=== PATIENT | female | born 1940 | race Caucasian/White ===

== ENCOUNTER 2019-10-22 09:44 | Emergency (ER) | payer MEDICARE, BC ==
[~2019-10-22] VITALS: Ht 170.2 cm; Wt 71.8 kg
[2019-10-22] MEDS ORDERED: normal saline 1000ML IV soln IVB ONE (09:50)
[2019-10-22] MEDS ORDERED: diltiazem 5mg/ml 5ml inj. IV ONE (09:50)
[2019-10-22] MEDS ORDERED: ondansetron/PF 4mg/2ml inj IV ONE (09:50)
[2019-10-22] MEDS ORDERED: aspirin 81mg tab.chew PO ONE (09:50)
[2019-10-22 10:17] LABS: BASOPHILS % (AUTO) 0.7 % (0-1); EOSINOPHILS # (AUTO) 0.2 X10'3 (0-0.9); EOSINOPHILS % (AUTO) 2.8 % (0-6); LYMPHOCYTES # (AUTO) 0.9 X10'3 (1.1-4.8); LYMPHOCYTES % (AUTO) 15.4 % (21-51); MEAN CORPUSCULAR HEMOGLOBIN 32.4 PG (27.0-31.0); MEAN CORPUSCULAR HGB CONC 33.5 g/dL (33.0-36.5); MEAN CORPUSCULAR VOLUME 96.8 FL (78-98); MEAN PLATELET VOLUME 7.9 FL (7.4-10.4); MONOCYTES # (AUTO) 0.5 X10'3 (0-0.9); MONOCYTES % (AUTO) 8.2 % (2-12); NEUTROPHILS # (AUTO) 4.1 X10'3 (1.8-7.7); NEUTROPHILS % (AUTO) 72.9 % (42-75); PLATELET COUNT 189 X10'3 (140-440); RED BLOOD COUNT 4.34 X10'6 (4.20-5.60); RED CELL DISTRIBUTION WIDTH 13.7 % (11.5-14.5); WHITE BLOOD COUNT 5.6 X10'3 (4.5-11.0)
[2019-10-22 10:46] LABS: ALANINE AMINOTRANSFERASE 27 U/L (12-78); ALBUMIN 4.2 G/DL (3.4-5.0); ALBUMIN/GLOBULIN RATIO 1.2 (1.1-1.5); ALKALINE PHOSPHATASE 67 IU/L (46-116); ANION GAP 9 (8-16); ASPARTATE AMINO TRANSFERASE 29 U/L (10-37); BILIRUBIN,TOTAL 0.9 MG/DL (0.1-1.0); BLOOD UREA NITROGEN 14 MG/DL (7-18); BUN/CREATININE RATIO 14.9 (6.6-38.0); CALCIUM 8.5 MG/DL (8.5-10.1); CHLORIDE 103 MMOL/L (99-107); CREATININE 0.94 MG/DL (0.40-0.90); GLUCOSE 122 MG/DL (70-104); POTASSIUM 3.5 MMOL/L (3.5-5.1); SODIUM 139 MMOL/L (135-145); TOTAL CARBON DIOXIDE 27.5 MMOL/L (24-32); TOTAL PROTEIN 7.6 G/DL (6.4-8.2); eGFR 58 ML/MIN
[2019-10-22 11:00] VITALS: BP 125/71
== END 2019-10-22 11:11 | disposition home or self-care (01) ==
LOC: ER 09:44
DX: I48.20 Chronic atrial fibrillation, unspecified (principal); R07.89 Other chest pain; R42 Dizziness and giddiness; Z86.73 Personal history of transient ischemic attack (TIA), and cerebral infarction without residual deficits
CPT/HCPCS: 36415; 71045; 80053; 83880; 84484; 85025; 85610; 93005; 96361; 96374; 96375; 99285; J2405; J7030; J3490

== ENCOUNTER 2019-11-06 10:09 | Observation (INO) | payer MEDICARE, BC ==
[~2019-11-06] VITALS: Ht 170.2 cm; Wt 72.7 kg
[2019-11-06 11:05] LABS: BASOPHILS % (AUTO) 0.4 % (0-1); EOSINOPHILS # (AUTO) 0.2 X10'3 (0-0.9); EOSINOPHILS % (AUTO) 2.5 % (0-6); HEMATOCRIT 41.2 % (35.0-45.0); HEMOGLOBIN 13.8 g/dl (12.0-16.0); LYMPHOCYTES # (AUTO) 0.9 X10'3 (1.1-4.8); LYMPHOCYTES % (AUTO) 13.5 % (21-51); MEAN CORPUSCULAR HEMOGLOBIN 32.3 PG (27.0-31.0); MEAN CORPUSCULAR HGB CONC 33.6 g/dL (33.0-36.5); MEAN CORPUSCULAR VOLUME 96.2 FL (78-98); MEAN PLATELET VOLUME 8.4 FL (7.4-10.4); MONOCYTES # (AUTO) 0.5 X10'3 (0-0.9); MONOCYTES % (AUTO) 7.3 % (2-12); NEUTROPHILS # (AUTO) 5.2 X10'3 (1.8-7.7); NEUTROPHILS % (AUTO) 76.3 % (42-75); PLATELET COUNT 192 X10'3 (140-440); RED BLOOD COUNT 4.28 X10'6 (4.20-5.60); RED CELL DISTRIBUTION WIDTH 13.6 % (11.5-14.5); WHITE BLOOD COUNT 6.8 X10'3 (4.5-11.0)
[2019-11-06 11:20] LABS: ALANINE AMINOTRANSFERASE 19 U/L (12-78); ALBUMIN/GLOBULIN RATIO 1.3 (1.1-1.5); ALKALINE PHOSPHATASE 69 IU/L (46-116); ANION GAP 8 (8-16); ASPARTATE AMINO TRANSFERASE 20 U/L (10-37); BILIRUBIN,TOTAL 0.7 MG/DL (0.1-1.0); BLOOD UREA NITROGEN 18 MG/DL (7-18); BUN/CREATININE RATIO 16.8 (6.6-38.0); CALCIUM 8.6 MG/DL (8.5-10.1); CHLORIDE 105 MMOL/L (99-107); CREATININE 1.07 MG/DL (0.40-0.90); GLUCOSE 124 MG/DL (70-104); POTASSIUM 4.1 MMOL/L (3.5-5.1); SODIUM 140 MMOL/L (135-145); TOTAL CARBON DIOXIDE 27.2 MMOL/L (24-32); eGFR 50 ML/MIN
[2019-11-06] MEDS ORDERED: acetaminophen 325mg tablet PO PRN ×2 (13:00)
[2019-11-06] MEDS ORDERED: ondansetron/PF 4mg/2ml inj IV PRN (13:00)
[2019-11-06] MEDS ORDERED: morphine 2 MG/ML inj. syringe IV PRN ×2 (13:00)
[2019-11-06] MEDS ORDERED: magnesium hydroxide 30ml (MOM) UD suspension PO PRN (13:00)
[2019-11-06] MEDS ORDERED: mag hydrox/Alum hydrox/simeth 30ml oral suspension PO PRN (13:00)
[2019-11-06] MEDS ORDERED: HYDROcodone/acetaminophen 5mg/325mg tablet PO PRN (13:00)
[2019-11-06] MEDS ORDERED: nitroGLYCERIN 0.4mg SUBLingual tab SL PRN ×2 (13:20)
[2019-11-06] MEDS ORDERED: aminophylline 250mg/10ml inj. IV PRN (13:20)
[2019-11-06] MEDS ORDERED: regadenoson 0.4mg/5ml syringe IV ONE (13:20)
[2019-11-06] MEDS ORDERED: metoprolol tartrate 1mg/ml inj IV PRN (13:20)
[2019-11-06] MEDS ORDERED: LOSA50TA64 PO (13:28)
[2019-11-06] MEDS ORDERED: AMIT25TA9 PO (13:28)
[2019-11-06] MEDS ORDERED: ASPI-611 PO (13:28)
[2019-11-06] MEDS ORDERED: DABI150C PO (13:28)
[2019-11-06] MEDS ORDERED: LATA2.5D2 EACHEYE (13:28)
[2019-11-06] MEDS ORDERED: CARCD120C PO ×2 (13:28)
[2019-11-06] MEDS ORDERED: ALEN70TA37 PO (13:28)
[2019-11-06] MEDS ORDERED: OMEP40CA13 PO (13:28)
--- NOTE | 2019-11-06 13:40 | NUR ---
RECEIVED CALL FROM [facility], PT TO HAVE STRESS TEST TOMORROW AM, PT TO BE NPO AFTER MN
--- NOTE | 2019-11-06 14:06 | NUR ---
Report received from Liyah RN in ED. Awaiting patient arrival on PCU.
--- NOTE | 2019-11-06 14:24 | NUR ---
Patient admitted to PCU 3023B from ED. Tele monitor applied, admit VS taken. Pt complaints of mild chest pain 3/10, tight, nonradiating, states consistent and persistent since prior to coming to ED. No signs of distress. Plan of care explained to the patient and understands. Will continue to monitor.
[2019-11-06 14:30] VITALS: BP 142/73
[2019-11-06] MEDS ORDERED: pantoprazole 40mg Tablet.DR PO SCH (17:00)
[2019-11-06 18:00] VITALS: BP 153/75
--- NOTE | 2019-11-06 18:05 | NUR ---
Problems reprioritized. Patient report given, questions answered & plan of care reviewed with Donna GAYLE.
--- NOTE | 2019-11-06 18:15 | NUR ---
Patient in room U 3023B. I have received report from Singh Fountain RN and had the opportunity to ask questions and assume patient care.
--- NOTE | 2019-11-06 18:20 | NUR ---
2 RN skin check performed with Donna GAYLE. No open wounds or lesions, no areas of concern.
[2019-11-06 19:00] VITALS: BP 153/75
[2019-11-06] MEDS: dabigatran 150mg capsule PO SCH (20:08)
[2019-11-06] MEDS: amitriptyline 25mg tablet PO SCH (20:08)
[2019-11-06] MEDS ORDERED: diltiazem CD 120mg capsule (once-daily) PO SCH (21:00)
[2019-11-06] MEDS ORDERED: latanoprost 0.005% 2.5ml ophthalmic drops EACHEYE SCH (21:00)
[2019-11-06 22:00] VITALS: BP 131/92
[2019-11-07] VITALS (10 sets, daily range): BP systolic 123–150; BP diastolic 76–131
[2019-11-07 05:55] LABS: BASOPHILS % (AUTO) 0.5 % (0-1); EOSINOPHILS # (AUTO) 0.2 X10'3 (0-0.9); EOSINOPHILS % (AUTO) 3.3 % (0-6); HEMATOCRIT 39.4 % (35.0-45.0); HEMOGLOBIN 13.2 g/dl (12.0-16.0); LYMPHOCYTES % (AUTO) 15.2 % (21-51); MEAN CORPUSCULAR HEMOGLOBIN 32.5 PG (27.0-31.0); MEAN CORPUSCULAR HGB CONC 33.6 g/dL (33.0-36.5); MEAN CORPUSCULAR VOLUME 96.8 FL (78-98); MEAN PLATELET VOLUME 8.6 FL (7.4-10.4); MONOCYTES # (AUTO) 0.6 X10'3 (0-0.9); MONOCYTES % (AUTO) 8.6 % (2-12); NEUTROPHILS # (AUTO) 4.7 X10'3 (1.8-7.7); NEUTROPHILS % (AUTO) 72.4 % (42-75); PLATELET COUNT 182 X10'3 (140-440); RED BLOOD COUNT 4.07 X10'6 (4.20-5.60); RED CELL DISTRIBUTION WIDTH 13.4 % (11.5-14.5); WHITE BLOOD COUNT 6.5 X10'3 (4.5-11.0)
--- NOTE | 2019-11-07 06:10 | NUR ---
Problems reprioritized. Patient report given, questions answered & plan of care reviewed with NALINI Wild. Addendum: 11/07/19 at 0642 by Donna Montilla RN Given to Singh Fountain RN
[2019-11-07 06:15] LABS: ALBUMIN 3.7 G/DL (3.4-5.0); ANION GAP 8 (8-16); BLOOD UREA NITROGEN 14 MG/DL (7-18); BUN/CREATININE RATIO 16.3 (6.6-38.0); CALCIUM 8.6 MG/DL (8.5-10.1); CHLORIDE 105 MMOL/L (99-107); CHOLESTEROL 140 MG/DL (0-200); CREATININE 0.86 MG/DL (0.40-0.90); GLUCOSE 97 MG/DL (70-104); HDL CHOLESTEROL 71 MG/DL (35-60); LDL CHOLESTEROL 55 MG/DL (50-100); POTASSIUM 3.9 MMOL/L (3.5-5.1); SODIUM 140 MMOL/L (135-145); TOTAL CARBON DIOXIDE 27.5 MMOL/L (24-32); TRIGLYCERIDES 64 MG/DL (20-135); eGFR 64 ML/MIN
--- NOTE | 2019-11-07 06:21 | NUR ---
Patient in room PCU 3023. I have received report from NALINI Phillips and had the opportunity to ask questions and assume patient care.
--- NOTE | 2019-11-07 06:38 | NUR ---
Patient in room PCU 3023. I have received report from Allison GAYLE and had the opportunity to ask questions and assume patient care.
[2019-11-07] MEDS ORDERED: diltiazem CD 120mg capsule (once-daily) PO SCH (08:00)
[2019-11-07] MEDS ORDERED: aspirin 81mg tablet.DR PO SCH (08:00)
[2019-11-07] MEDS: amitriptyline 25mg tablet PO SCH (09:01)
[2019-11-07] MEDS: dabigatran 150mg capsule PO SCH (09:02)
--- NOTE | 2019-11-07 10:21 | NUR ---
Report received from Renae GAYLE in stress lab, awaiting patient return to [facility].
--- NOTE | 2019-11-07 12:45 | NUR ---
PAGER ID: [phone] MESSAGE: Essie morales [phone]. RE Deshaun, P. [phone]. Lexiscan results are back. Pt really wants to go home. Please review when you can. Thank you!
--- NOTE | 2019-11-07 14:35 | NUR ---
Per MD order, patient stable for discharge home. Discharge packet printed and reviewed with the patient. IV removed and tele monitor removed. Discharge instructions and follow up, return precautions discussed with the patient, all questions answered. No new prescriptions. Patient discharged home with all belongings. Patient escorted via wheelchair to private vehicle to go home with family.
== END 2019-11-07 14:39 | disposition home or self-care (01) ==
LOC: ER 10:09 → ED HOLD 13:00 → PCU 3S 14:43
PROVIDERS: ADMIT Internal Medicine; ATTEND Internal Medicine
DX: R07.89 Other chest pain (principal); I10 Essential (primary) hypertension; I48.0 Paroxysmal atrial fibrillation; Z86.73 Personal history of transient ischemic attack (TIA), and cerebral infarction without residual deficits; Z90.710 Acquired absence of both cervix and uterus; Z79.01 Long term (current) use of anticoagulants; Z79.899 Other long term (current) drug therapy
CPT/HCPCS: 36415; 71045; 78452; 80048; 80053; 80061; 83880; 84443; 84484; 85025; 87081; 93017; 93306; 99285; A9500; G0378; J2785; 93005

== ENCOUNTER 2021-07-01 18:04 | Emergency (ER) | payer MEDICARE, BC ==
[~2021-07-01] VITALS: Ht 170.2 cm; Wt 70.5 kg
[~2021-07-01 18:04] MED LIST: ALEN70TA37 PO; AMIT25TA9 PO; ASPI-611 PO; CIPR-259 PO; DIGO-31 PO; DILT360C32 PO; FURO20TA4 PO; LATA2.5D14 EACHEYE; LOSA50TA64 PO; METR-159 PO; OMEP40CA21 PO; WARF3TAB56 PO
[2021-07-01] MEDS ORDERED: normal saline 1000ML IV soln IVB ONE ×2 (18:15)
[2021-07-01] MEDS ORDERED: metoclopramide 5 mg/ml inj IV ONE (18:15)
[2021-07-01] MEDS ORDERED: diphenhydrAMINE 50 mg/ml inj IV ONE (18:15)
[2021-07-01 19:01] LABS: BASOPHILS # (AUTO) 0.1 X10'3 (0-0.2); BASOPHILS % (AUTO) 0.7 % (0-1); EOSINOPHILS # (AUTO) 0.2 X10'3 (0-0.9); EOSINOPHILS % (AUTO) 1.6 % (0-6); HEMATOCRIT 32.6 % (35.0-45.0); HEMOGLOBIN 11.1 g/dl (12.0-16.0); LYMPHOCYTES # (AUTO) 0.7 X10'3 (1.1-4.8); LYMPHOCYTES % (AUTO) 5.6 % (21-51); MEAN CORPUSCULAR HEMOGLOBIN 33.1 PG (27.0-31.0); MEAN CORPUSCULAR HGB CONC 34.1 g/dL (33.0-36.5); MEAN CORPUSCULAR VOLUME 97.2 FL (78-98); MEAN PLATELET VOLUME 8.8 FL (7.4-10.4); MONOCYTES % (AUTO) 7.8 % (2-12); NEUTROPHILS # (AUTO) 10.5 X10'3 (1.8-7.7); NEUTROPHILS % (AUTO) 84.3 % (42-75); PLATELET COUNT 337 X10'3 (140-440); RED BLOOD COUNT 3.36 X10'6 (4.20-5.60); RED CELL DISTRIBUTION WIDTH 13.8 % (11.5-14.5); WHITE BLOOD COUNT 12.4 X10'3 (4.5-11.0)
[2021-07-01 19:25] LABS: ALANINE AMINOTRANSFERASE 31 U/L (12-78); ALBUMIN 3.3 G/DL (3.4-5.0); ALBUMIN/GLOBULIN RATIO 0.9 (1.1-1.5); ALKALINE PHOSPHATASE 68 IU/L (46-116); ANION GAP 14 (8-16); ASPARTATE AMINO TRANSFERASE 52 U/L (10-37); BILIRUBIN,TOTAL 0.9 MG/DL (0.1-1.0); BLOOD UREA NITROGEN 21 MG/DL (7-18); BUN/CREATININE RATIO 18.4 (6.6-38.0); CALCIUM 8.8 MG/DL (8.5-10.1); CHLORIDE 94 MMOL/L (99-107); CREATININE 1.14 MG/DL (0.40-0.90); GLUCOSE 136 MG/DL (70-104); LIPASE 287 U/L (73-393); POTASSIUM 3.1 MMOL/L (3.5-5.1); SODIUM 139 MMOL/L (135-145); TOTAL CARBON DIOXIDE 31.4 MMOL/L (24-32); eGFR 46 ML/MIN
[2021-07-01 21:03] LABS: CLARITY,URINE CLEAR (Clear); COLOR,URINE YELLOW (Yellow); GLUCOSE, URINE NEGATIVE (Neg); KETONES,URINE TRACE mg/dl (Neg); LEUKOCYTE ESTERASE ,URINE NEGATIVE (Neg); OCCULT BLOOD,URINE NEGATIVE (Neg); PROTEIN,URINE NEGATIVE (Neg); UROBILINOGEN,URINE 0.2 E.U/dL (0.2-1.0)
[2021-07-01] MEDS ORDERED: ONDA4TAB12 PO (21:12)
[2021-07-01] MEDS ORDERED: POTA-207 PO (21:12)
[2021-07-01 21:15] LABS: UA COLLECTION TYPE CLN CATCH MIDSTREAM
[2021-07-01 21:16] LABS: NITRITES, URINE NEGATIVE (Neg)
[2021-07-01 21:49] VITALS: BP 120/52
[2021-07-29] MEDS ORDERED: POTA-188 PO (13:26)
[2021-07-29] MEDS ORDERED: DIPH-186 PO (13:28)
[2021-07-29] MEDS ORDERED: FURO-150 PO (13:28)
== END 2021-07-01 22:05 | disposition home or self-care (01) ==
LOC: ER 18:04
DX: R11.2 Nausea with vomiting, unspecified (principal); R19.7 Diarrhea, unspecified; E87.6 Hypokalemia; I48.91 Unspecified atrial fibrillation; I10 Essential (primary) hypertension; Z86.73 Personal history of transient ischemic attack (TIA), and cerebral infarction without residual deficits; Z79.82 Long term (current) use of aspirin; Z79.899 Other long term (current) drug therapy
CPT/HCPCS: 36415; 74176; 80053; 81003; 83690; 84145; 85025; 96374; 96375; 99284; J1200; J2765; J7030

== ENCOUNTER 2021-07-24 15:36 | Emergency (ER) | payer MEDICARE, BC ==
[~2021-07-24] VITALS: Ht 170.2 cm; Wt 66.3 kg
[~2021-07-24 15:36] MED LIST changes: -CIPR-259 PO; -METR-159 PO; +ONDA4TAB12 PO; +POTA-207 PO
[2021-07-24] MEDS ORDERED: aspirin 81mg tab.chew PO ONE (15:40)
[2021-07-24 15:53] VITALS: BP 123/66
[2021-07-24 16:56] LABS: BASOPHILS # (AUTO) 0.1 X10'3 (0-0.2); BASOPHILS % (AUTO) 1.5 % (0-1); EOSINOPHILS # (AUTO) 0.3 X10'3 (0-0.9); EOSINOPHILS % (AUTO) 5.5 % (0-6); HEMATOCRIT 34.7 % (35.0-45.0); HEMOGLOBIN 11.7 g/dl (12.0-16.0); LYMPHOCYTES # (AUTO) 0.6 X10'3 (1.1-4.8); LYMPHOCYTES % (AUTO) 10.5 % (21-51); MEAN CORPUSCULAR HEMOGLOBIN 32.7 PG (27.0-31.0); MEAN CORPUSCULAR HGB CONC 33.6 g/dL (33.0-36.5); MEAN CORPUSCULAR VOLUME 97.1 FL (78-98); MEAN PLATELET VOLUME 8.9 FL (7.4-10.4); MONOCYTES # (AUTO) 0.4 X10'3 (0-0.9); NEUTROPHILS % (AUTO) 75.5 % (42-75); PLATELET COUNT 191 X10'3 (140-440); RED BLOOD COUNT 3.57 X10'6 (4.20-5.60); RED CELL DISTRIBUTION WIDTH 13.8 % (11.5-14.5); WHITE BLOOD COUNT 5.4 X10'3 (4.5-11.0)
[2021-07-24 16:59] LABS: APTT 32 SECONDS (22-32)
[2021-07-24 17:01] LABS: ANION GAP 7 (8-16); BILIRUBIN,TOTAL 1.1 MG/DL (0.1-1.0); BLOOD UREA NITROGEN 27 MG/DL (7-18); BUN/CREATININE RATIO 24.8 (6.6-38.0); CALCIUM 8.4 MG/DL (8.5-10.1); CHLORIDE 102 MMOL/L (99-107); CREATININE 1.09 MG/DL (0.40-0.90); GLUCOSE 108 MG/DL (70-104); POTASSIUM 4.3 MMOL/L (3.5-5.1); SODIUM 137 MMOL/L (135-145); TOTAL CARBON DIOXIDE 27.7 MMOL/L (24-32); eGFR 48 ML/MIN
[2021-07-24 17:02] LABS: ALANINE AMINOTRANSFERASE 57 U/L (12-78); ALBUMIN 3.9 G/DL (3.4-5.0); ALBUMIN/GLOBULIN RATIO 1.1 (1.1-1.5); ALKALINE PHOSPHATASE 85 IU/L (46-116); ASPARTATE AMINO TRANSFERASE 163 U/L (10-37); TOTAL PROTEIN 7.4 G/DL (6.4-8.2)
[2021-07-24 17:11] LABS: MAGNESIUM 1.9 MG/DL (1.5-2.4)
--- NOTE | 2021-07-24 17:19 | NUR ---
Per request of provider due to abnormal troponin level. Called patient back to return to hospital. Explained to patient that she had abnormal labs and that the provider would like her to return for further work up. Patient stated that she was going to see her e commerce retailer tomorrow and would like the labs to be sent to him because she had an appointment tomorrow. I discussed this with IVAN Arizmendi and she spoke with the patient via phone regarding the troponin level being critically elevated and that it could be indicative of a heart attack. FILAMENT TESTER discussed risk up to and including with patient. Patient still refused to come back in to ER stating that she would just see e commerce retailer tomorrow.
[2021-07-29] MEDS ORDERED: POTA-188 PO (13:26)
[2021-07-29] MEDS ORDERED: FURO-150 PO (13:28)
[2021-07-29] MEDS ORDERED: DIPH-186 PO (13:28)
== END 2021-07-24 17:32 | disposition left against medical advice (07) ==
LOC: ER 15:36
DX: R07.89 Other chest pain (principal); I48.91 Unspecified atrial fibrillation; I10 Essential (primary) hypertension; Z86.73 Personal history of transient ischemic attack (TIA), and cerebral infarction without residual deficits; Z79.82 Long term (current) use of aspirin; Z79.899 Other long term (current) drug therapy
CPT/HCPCS: 36415; 71045; 80053; 80162; 83735; 83880; 84484; 85025; 85610; 85730; 93005; 99285

== ENCOUNTER 2021-07-30 12:35 | Inpatient (IN) | payer MEDICARE, BC ==
[~2021-07-30] VITALS: Ht 170.2 cm; Wt 72.5 kg
[~2021-07-30 12:35] MED LIST changes: -ASPI-611 PO; -DIGO-31 PO; +DIPH-186 PO; +FURO-150 PO; -FURO20TA4 PO; -OMEP40CA21 PO; -ONDA4TAB12 PO; +POTA-188 PO; -POTA-207 PO
[2021-07-30] MEDS ORDERED: iohexol 350MG/ML 100ml bottle IV ONE (12:41)
[2021-07-30 13:13] LABS: BASOPHILS % (AUTO) 0.7 % (0-1); EOSINOPHILS # (AUTO) 0.2 X10'3 (0-0.9); EOSINOPHILS % (AUTO) 2.4 % (0-6); HEMATOCRIT 35.1 % (35.0-45.0); HEMOGLOBIN 11.6 g/dl (12.0-16.0); LYMPHOCYTES # (AUTO) 1.3 X10'3 (1.1-4.8); LYMPHOCYTES % (AUTO) 17.6 % (21-51); MEAN CORPUSCULAR HEMOGLOBIN 32.2 PG (27.0-31.0); MEAN CORPUSCULAR VOLUME 97.4 FL (78-98); MEAN PLATELET VOLUME 9.2 FL (7.4-10.4); MONOCYTES # (AUTO) 0.8 X10'3 (0-0.9); MONOCYTES % (AUTO) 10.7 % (2-12); NEUTROPHILS # (AUTO) 4.9 X10'3 (1.8-7.7); NEUTROPHILS % (AUTO) 68.6 % (42-75); PLATELET COUNT 200 X10'3 (140-440); RED CELL DISTRIBUTION WIDTH 13.7 % (11.5-14.5); WHITE BLOOD COUNT 7.1 X10'3 (4.5-11.0)
[2021-07-30 13:22] LABS: APTT 22 SECONDS (22-32)
[2021-07-30 13:24] LABS: ALANINE AMINOTRANSFERASE 28 U/L (12-78); ALBUMIN 3.8 G/DL (3.4-5.0); ALBUMIN/GLOBULIN RATIO 1.2 (1.1-1.5); ALKALINE PHOSPHATASE 72 IU/L (46-116); ANION GAP 11 (8-16); ASPARTATE AMINO TRANSFERASE 29 U/L (10-37); BILIRUBIN,TOTAL 1.1 MG/DL (0.1-1.0); BLOOD UREA NITROGEN 17 MG/DL (7-18); BUN/CREATININE RATIO 18.9 (6.6-38.0); CALCIUM 8.8 MG/DL (8.5-10.1); CHLORIDE 102 MMOL/L (99-107); GLUCOSE 108 MG/DL (70-104); SODIUM 138 MMOL/L (135-145); TOTAL CARBON DIOXIDE 24.8 MMOL/L (24-32); TOTAL PROTEIN 6.9 G/DL (6.4-8.2); eGFR 60 ML/MIN
[2021-07-30] MEDS ORDERED: ondansetron/PF 4mg/2ml inj IV ONE (13:30)
[2021-07-30] MEDS ORDERED: aspirin 325mg tablet PO ONE (13:45)
[2021-07-30 14:59] LABS: CLARITY,URINE CLEAR (Clear); GLUCOSE, URINE NEGATIVE (Neg); KETONES,URINE NEGATIVE (Neg); LEUKOCYTE ESTERASE ,URINE NEGATIVE (Neg); NITRITES, URINE NEGATIVE (Neg); OCCULT BLOOD,URINE TRACE-INTACT (Neg); PROTEIN,URINE NEGATIVE (Neg); UROBILINOGEN,URINE 0.2 E.U/dL (0.2-1.0)
[2021-07-30] MEDS ORDERED: magnesium 2GM in 50ml NS 50 ML IV PRN (15:00)
[2021-07-30] MEDS ORDERED: magnesium hydroxide 30ml (MOM) UD suspension PO PRN (15:00)
[2021-07-30] MEDS ORDERED: acetaminophen 325mg tablet PO PRN (15:00)
[2021-07-30] MEDS ORDERED: potassium Cl 20 mEq SR tablet PO PRN ×2 (15:00)
[2021-07-30] MEDS ORDERED: potassium CL 10mEq/100ml bag 100 ML IV PRN (15:00)
[2021-07-30] MEDS ORDERED: ondansetron/PF 4mg/2ml inj IV PRN (15:00)
[2021-07-30] MEDS ORDERED: magnesium Cl slow-release 64mg tablet PO PRN (15:00)
[2021-07-30] MEDS ORDERED: mag hydrox/Alum hydrox/simeth 30ml oral suspension PO PRN (15:00)
[2021-07-30] MEDS ORDERED: magnesium 4gm in 100ml NS 100 ML IV PRN (15:00)
[2021-07-30 15:02] LABS: COLOR,URINE STRAW (Yellow); UA COLLECTION TYPE OTHER
[2021-07-30 15:05] LABS: MUCUS STRANDS FEW /LPF (Neg); SQUAMOUS EPITHELIAL CELL,UR FEW /LPF (FEW)
[2021-07-30 15:06] LABS: BACTERIA,URINE 1+ /HPF (Neg); RBC,URINE 0-2 /HPF (0-2); WBC,URINE 0-4 /HPF (0-4)
[2021-07-30 15:13] LABS: URINE AMPHETAMINE SCREEN NEGATIVE (Neg); URINE BARBITUATE SCREEN NEGATIVE (Neg); URINE BENZODIAZEPINES SCREEN POSITIVE (Neg); URINE CANNABINOID SCREEN NEGATIVE (Neg); URINE COCAINE SCREEN NEGATIVE (Neg); URINE METHADONE SCREEN NEGATIVE (Neg); URINE OPIATE SCREEN NEGATIVE (Neg); URINE PHENCYCLIDINE SCREEN NEGATIVE (Neg)
[2021-07-30 15:21] LABS: CHOL/HDL RATIO 2.4 (0.00-4.99); CHOLESTEROL 167 MG/DL (0-200); HDL CHOLESTEROL 69 MG/DL (35-60); LDL CHOLESTEROL 64 MG/DL (50-100); MAGNESIUM 1.9 MG/DL (1.5-2.4); TRIGLYCERIDES 103 MG/DL (20-135)
[2021-07-30] MEDS: normal saline 1000ml 1,000 ML IV SCH ×2 (15:23→20:00)
[2021-07-30 16:30] VITALS: BP 134/72
[2021-07-30 18:00] VITALS: BP 135/67
--- NOTE | 2021-07-30 18:54 | NUR ---
Problems reprioritized. Patient report given, questions answered & plan of care reviewed with DIANE GAYLE.
[2021-07-30] MEDS ORDERED: non-formulary drug (Alendronate Sodium 1 TAB) PO SCH (19:10)
[2021-07-30] MEDS: docusate sod 100mg capsule PO SCH (20:00)
[2021-07-30] MEDS: K and/or MAG REPLACEMENT MC SCH (20:00)
[2021-07-30] MEDS ORDERED: warfarin 3mg tablet PO ONE (21:00)
[2021-07-30] MEDS ORDERED: diphenoxylate/atropine tablet (Lomotil) PO PRN (21:00)
[2021-07-30 22:00] VITALS: BP 114/61
[2021-07-30] MEDS: latanoprost 0.005% 2.5ml ophthalmic drops EACHEYE SCH (22:36)
[2021-07-31 02:00] VITALS: BP 120/75
[2021-07-31] MEDS: normal saline 1000ml 1,000 ML IV SCH ×2 (04:56→14:58)
[2021-07-31 06:00] VITALS: BP 114/65
--- NOTE | 2021-07-31 06:19 | NUR ---
Patient in room PCU 3012. I have received report from DALE GAYLE and had the opportunity to ask questions and assume patient care.
[2021-07-31 06:47] LABS: EOSINOPHILS # (AUTO) 0.1 X10'3 (0-0.9); HEMOGLOBIN 11.2 g/dl (12.0-16.0); RED BLOOD COUNT 3.38 X10'6 (4.20-5.60)
[2021-07-31 06:50] LABS: BASOPHILS % (AUTO) 0.9 % (0-1); EOSINOPHILS % (AUTO) 2.4 % (0-6); HEMATOCRIT 32.4 % (35.0-45.0); LYMPHOCYTES # (AUTO) 1.2 X10'3 (1.1-4.8); LYMPHOCYTES % (AUTO) 24.3 % (21-51); MEAN CORPUSCULAR HEMOGLOBIN 33.2 PG (27.0-31.0); MEAN CORPUSCULAR HGB CONC 34.5 g/dL (33.0-36.5); MEAN CORPUSCULAR VOLUME 96.1 FL (78-98); MEAN PLATELET VOLUME 8.8 FL (7.4-10.4); MONOCYTES # (AUTO) 0.6 X10'3 (0-0.9); MONOCYTES % (AUTO) 11.4 % (2-12); PLATELET COUNT 180 X10'3 (140-440); RED CELL DISTRIBUTION WIDTH 13.6 % (11.5-14.5); WHITE BLOOD COUNT 4.9 X10'3 (4.5-11.0)
[2021-07-31 07:07] LABS: ALBUMIN 3.5 G/DL (3.4-5.0); ANION GAP 7 (8-16); BLOOD UREA NITROGEN 13 MG/DL (7-18); BUN/CREATININE RATIO 16.9 (6.6-38.0); CHLORIDE 105 MMOL/L (99-107); CREATININE 0.77 MG/DL (0.40-0.90); GLUCOSE 84 MG/DL (70-104); POTASSIUM 3.4 MMOL/L (3.5-5.1); SODIUM 140 MMOL/L (135-145); TOTAL CARBON DIOXIDE 27.8 MMOL/L (24-32); eGFR 72 ML/MIN
[2021-07-31] MEDS ORDERED: non-formulary drug (Diltiazem HCl (Diltiazem ER) 1 CAP) PO SCH (08:00)
[2021-07-31] MEDS ORDERED: potassium chloride 10mEq ER tablet PO SCH (08:00)
[2021-07-31] MEDS: losartan 50mg tablet PO SCH (08:25)
[2021-07-31] MEDS: amitriptyline 25mg tablet PO SCH (08:26)
[2021-07-31] MEDS: docusate sod 100mg capsule PO SCH ×2 (08:26→20:00)
[2021-07-31] MEDS: furosemide 20MG tablet PO SCH (08:26)
[2021-07-31] MEDS: aspirin 81mg, enteric-coated 1 TAB TABLET.DR PO SCH (08:26)
[2021-07-31] MEDS: potassium Cl 20 mEq SR tablet PO SCH (08:26)
[2021-07-31] MEDS: diltiazem CD 180mg cap (once-daily) PO SCH (08:27)
[2021-07-31 11:00] VITALS: BP 129/68
[2021-07-31 15:00] VITALS: BP_SYST 114; BP_SYST 116; BP_DIAS 70; BP_DIAS 71
[2021-07-31] MEDS: K and/or MAG REPLACEMENT MC SCH (20:00)
[2021-07-31] MEDS: latanoprost 0.005% 2.5ml ophthalmic drops EACHEYE SCH (20:54)
[2021-07-31] MEDS ORDERED: warfarin 4mg tablet PO ONE (21:00)
[2021-07-31 22:00] VITALS: BP 119/67
[2021-08-01 02:00] VITALS: BP 117/69
[2021-08-01 06:00] VITALS: BP 119/62
[2021-08-01 06:48] LABS: BASOPHILS % (AUTO) 0.9 % (0-1); EOSINOPHILS # (AUTO) 0.3 X10'3 (0-0.9); EOSINOPHILS % (AUTO) 6.8 % (0-6); HEMATOCRIT 32.1 % (35.0-45.0); HEMOGLOBIN 10.8 g/dl (12.0-16.0); LYMPHOCYTES # (AUTO) 0.9 X10'3 (1.1-4.8); LYMPHOCYTES % (AUTO) 19.2 % (21-51); MEAN CORPUSCULAR HEMOGLOBIN 32.8 PG (27.0-31.0); MEAN CORPUSCULAR HGB CONC 33.7 g/dL (33.0-36.5); MEAN CORPUSCULAR VOLUME 97.5 FL (78-98); MEAN PLATELET VOLUME 8.9 FL (7.4-10.4); MONOCYTES # (AUTO) 0.5 X10'3 (0-0.9); MONOCYTES % (AUTO) 10.9 % (2-12); NEUTROPHILS # (AUTO) 2.9 X10'3 (1.8-7.7); NEUTROPHILS % (AUTO) 62.2 % (42-75); PLATELET COUNT 166 X10'3 (140-440); RED BLOOD COUNT 3.29 X10'6 (4.20-5.60); RED CELL DISTRIBUTION WIDTH 13.2 % (11.5-14.5); WHITE BLOOD COUNT 4.7 X10'3 (4.5-11.0)
[2021-08-01] MEDS: normal saline 1000ml 1,000 ML IV SCH ×2 (07:00→08:44)
[2021-08-01 07:18] LABS: ALBUMIN 3.3 G/DL (3.4-5.0); ANION GAP 6 (8-16); BLOOD UREA NITROGEN 9 MG/DL (7-18); BUN/CREATININE RATIO 13.2 (6.6-38.0); CALCIUM 7.9 MG/DL (8.5-10.1); CHLORIDE 109 MMOL/L (99-107); CREATININE 0.68 MG/DL (0.40-0.90); GLUCOSE 89 MG/DL (70-104); POTASSIUM 3.6 MMOL/L (3.5-5.1); SODIUM 142 MMOL/L (135-145); TOTAL CARBON DIOXIDE 26.8 MMOL/L (24-32); eGFR 83 ML/MIN
[2021-08-01] MEDS: K and/or MAG REPLACEMENT MC SCH (08:00)
[2021-08-01] MEDS ORDERED: atorvastatin 20mg tablet PO SCH (08:00)
[2021-08-01] MEDS: docusate sod 100mg capsule PO SCH (08:40)
[2021-08-01] MEDS: losartan 50mg tablet PO SCH (08:41)
[2021-08-01] MEDS: amitriptyline 25mg tablet PO SCH (08:41)
[2021-08-01] MEDS: diltiazem CD 180mg cap (once-daily) PO SCH (08:41)
[2021-08-01] MEDS: potassium Cl 20 mEq SR tablet PO SCH (08:42)
[2021-08-01] MEDS: furosemide 20MG tablet PO SCH (08:42)
[2021-08-01] MEDS: aspirin 81mg, enteric-coated 1 TAB TABLET.DR PO SCH (08:42)
[2021-08-01 11:00] VITALS: BP 109/65
[2021-08-01] MEDS ORDERED: ENOX80SY7 SUBCUT (14:02)
[2021-08-01] MEDS ORDERED: ASPI81TA52 PO (14:04)
[2021-08-01] MEDS ORDERED: ATOR20TA PO (14:04)
[2021-08-01] MEDS ORDERED: enoxaparin 100mg/ml syringe SUBCUT ONE (14:55)
[2021-08-01] MEDS ORDERED: enoxaparin 30mg/0.3ml syringe SQ ONE (15:15)
[2021-08-01] MEDS ORDERED: enoxaparin 30mg/0.3ml syringe IV ONE (15:15)
[2021-08-01] MEDS ORDERED: enoxaparin 40mg/0.4ml syringe SUBCUT ONE (15:15)
[2021-08-01] MEDS ORDERED: warfarin 3mg tablet PO SCH (21:00)
[2021-08-01] MEDS ORDERED: warfarin 5mg tablet PO ONE (21:00)
== END 2021-08-01 15:30 | disposition home health service (06) | DRG 69 ==
LOC: ER 12:36 → PCU 3S 15:03 → ER 16:52
PROVIDERS: ADMIT Family Medicine; ATTEND Family Medicine
PROC: B3251ZZ Computerized Tomography (CT Scan) of Bilateral Common Carotid Arteries using Low Osmolar Contrast (ICD-10-PCS; principal; 2021-07-30)
PROC: B32G1ZZ Computerized Tomography (CT Scan) of Bilateral Vertebral Arteries using Low Osmolar Contrast (ICD-10-PCS; 2021-07-30)
PROC: B32R1ZZ Computerized Tomography (CT Scan) of Intracranial Arteries using Low Osmolar Contrast (ICD-10-PCS; 2021-07-30)
PROC: B3281ZZ Computerized Tomography (CT Scan) of Bilateral Internal Carotid Arteries using Low Osmolar Contrast (ICD-10-PCS; 2021-07-30)
DX: G45.9 Transient cerebral ischemic attack, unspecified (principal); I50.32 Chronic diastolic (congestive) heart failure; I25.10 Atherosclerotic heart disease of native coronary artery without angina pectoris; G47.00 Insomnia, unspecified; K21.9 Gastro-esophageal reflux disease without esophagitis; E78.5 Hyperlipidemia, unspecified; R29.701 NIHSS score 1; G25.81 Restless legs syndrome; I11.0 Hypertensive heart disease with heart failure; K58.9 Irritable bowel syndrome, unspecified; I48.0 Paroxysmal atrial fibrillation; Z80.3 Family history of malignant neoplasm of breast; Z82.3 Family history of stroke; Z85.3 Personal history of malignant neoplasm of breast; Z86.73 Personal history of transient ischemic attack (TIA), and cerebral infarction without residual deficits; Z90.49 Acquired absence of other specified parts of digestive tract; Z79.899 Other long term (current) drug therapy; Z98.49 Cataract extraction status, unspecified eye; Z79.82 Long term (current) use of aspirin
CPT/HCPCS: 36415; 70450; 70544; 70551; 71045; 72125; 76937; 80048; 80053; 80061; 80305; 81001; 82803; 82948; 83735; 85014; 85025; 85610; 85730; 86885; 86900; 86901; 92508; 92616; 93005; 93460; 96374; 97110; 97116; 97162; 99152; 99153; 99285; A4620; A5120; A6258; C1751; C1769; C1894; G0378; J1644; J1650; J2250; J2405; J3010; J3490; J7030; Q0163; Q9967

== ENCOUNTER 2023-12-31 07:26 | Inpatient (IN) | payer MEDICARE, BC ==
[~2023-12-31] VITALS: Ht 170.2 cm; Wt 64.5 kg
[2023-12-31] VITALS (10 sets, daily range): BP systolic 116–177; BP diastolic 70–115; PULSE 75–118; RESP 18–40; TEMP 97.7–98.6; O2SAT 94–96
[~2023-12-31 07:26] MED LIST changes: +ATOR20TA PO; +DILT360C25 PO; -DILT360C32 PO; +ENOX80SY7 SUBCUT
[2023-12-31] MEDS ORDERED: ACET-864 PO (07:40)
[2023-12-31] MEDS ORDERED: AMIT10TA6 PO (07:40)
[2023-12-31] MEDS ORDERED: CHOL378P13 PO (07:41)
[2023-12-31 07:53] LABS: BASOPHILS # (AUTO) 0.1 X10'3 (0-0.2); EOSINOPHILS % (AUTO) 0.5 % (0-6); HEMATOCRIT 38.1 % (35.0-45.0); HEMOGLOBIN 12.7 g/dl (12.0-16.0); LYMPHOCYTES # (AUTO) 0.4 X10'3 (1.1-4.8); MEAN CORPUSCULAR HEMOGLOBIN 34.5 PG (27.0-31.0); MEAN CORPUSCULAR HGB CONC 33.4 g/dL (33.0-36.5); MEAN CORPUSCULAR VOLUME 103.1 FL (78-98); MEAN PLATELET VOLUME 8.3 FL (7.4-10.4); MONOCYTES # (AUTO) 0.4 X10'3 (0-0.9); NEUTROPHILS # (AUTO) 3.9 X10'3 (1.8-7.7); NEUTROPHILS % (AUTO) 79.5 % (42-75); PLATELET COUNT 161 X10'3 (140-440); RED BLOOD COUNT 3.69 X10'6 (4.20-5.60); RED CELL DISTRIBUTION WIDTH 13.3 % (11.5-14.5); WHITE BLOOD COUNT 4.8 X10'3 (4.5-11.0)
[2023-12-31] MEDS: diltiazem 5mg/ml 5ml inj. IV ONE ×2 (08:01→10:24)
[2023-12-31] MEDS: normal saline 1000ml 1,000 ML IV ONE (08:02)
[2023-12-31 08:14] LABS: ALBUMIN 4.2 G/DL (3.4-5.0); ANION GAP 9 (8-16); BLOOD UREA NITROGEN 7 MG/DL (7-18); BUN/CREATININE RATIO 8.8 (10.0-20.0); CHLORIDE 103 MMOL/L (99-107); GLUCOSE 123 MG/DL (70-104); POTASSIUM 3.8 MMOL/L (3.5-5.1); PRO BRAIN NATRIURETIC PEPTIDE 2267 PG/ML (0-450); SODIUM 139 MMOL/L (135-145); TOTAL CARBON DIOXIDE 27.1 MMOL/L (24-32); eCRCL 53 ML/MIN; eGFR 69 ML/MIN
[2023-12-31 08:25] LABS: INR 2.4 INR
[2023-12-31] MEDS: diltiazem CD 180mg cap (once-daily) PO SCH (09:26)
[2023-12-31] MEDS ORDERED: diltiazem-D5W 125mg/125ml 125 ML IV ONE (10:10)
[2023-12-31] MEDS: diltiazem-NS 100mg/100ml 125 ML IV ONE (10:47)
[2023-12-31] MEDS ORDERED: morphine 2 MG/ML inj. syringe IV PRN (13:00)
[2023-12-31] MEDS ORDERED: magnesium Cl slow-release 64mg tablet PO PRN (13:00)
[2023-12-31] MEDS ORDERED: ondansetron/PF 4mg/2ml inj IV PRN (13:00)
[2023-12-31] MEDS ORDERED: potassium Cl 20 mEq SR tablet PO PRN (13:00)
[2023-12-31] MEDS ORDERED: magnesium 2GM in 50ml NS 50 ML IV PRN (13:00)
[2023-12-31] MEDS ORDERED: magnesium 4gm in 100ml NS 100 ML IV PRN (13:00)
[2023-12-31] MEDS ORDERED: potassium Cl 40MEQ/1/2NS 520ml 520 ML IV PRN (13:00)
[2023-12-31] MEDS: PERFLUTREN PROTEIN-A MICROSPHR (Optison) 0.22 MG/ML 3ML VIAL IV ONE (13:19)
[2023-12-31] MEDS: furosemide 10 MG/1 ML 10ml inj IV ONE (15:10)
[2023-12-31 15:33] LABS: ABG BASE EXCESS -2.5 mmol/L (-2.0-2.0); ABG OXYGEN SATURATION 94.6 % (94-97); ABG PH (T) 7.422 (7.350-7.450); ABG PO2 (T) 76.2 mmHg (75.0-100.0); ALLEN'S TEST POSITIVE; FCOHb 0.3 % (0.0-3.9); FHHb 5.4 % (0.0-5.0); FLOW 2 L/min; FMetHb 0.3 % (0.0-1.5); MODE NC; PATIENT TEMPERATURE 37.3; TOTAL HEMOGLOBIN 13.7 G/dl (12.0-16.0)
[2023-12-31] MEDS: hydrALAZINE 20mg/ml inj. IV ONE (16:40)
[2023-12-31] MEDS: diltiazem-NS 100mg/100ml 100 ML IV SCH (16:56)
[2023-12-31] MEDS ORDERED: acetaminophen 325mg tablet PO PRN (18:15)
[2023-12-31] MEDS: K and/or MAG REPLACEMENT MC SCH (20:00)
[2023-12-31] MEDS: HALLS - SOOTHE MENTHOL 1.8 MG cough drop LOZENGE MM PRN (20:20)
[2023-12-31] MEDS ORDERED: losartan 50mg tablet PO SCH (21:10)
[2023-12-31] MEDS ORDERED: diphenhydrAMINE 25mg capsule PO PRN (21:10)
[2023-12-31] MEDS: losartan 50mg tablet PO SCH (21:50)
[2023-12-31] MEDS ORDERED: acetaminophen 325mg/10.15ml oral unit dose solution PO PRN (22:10)
[2024-01-01] VITALS (8 sets, daily range): BP systolic 109–124; BP diastolic 58–73; PULSE 63–81; RESP 16–21; TEMP 97.4–98.9; O2SAT 96–99
[2024-01-01] MEDS ORDERED: diltiazem-NS 100mg/100ml 100 ML IV SCH (03:40)
[2024-01-01] MEDS: diltiazem-NS 100mg/100ml 100 ML IV SCH (04:04)
[2024-01-01 06:02] LABS: BASOPHILS % (AUTO) 0.3 % (0-1); EOSINOPHILS % (AUTO) 0.1 % (0-6); HEMATOCRIT 36.3 % (35.0-45.0); HEMOGLOBIN 12.3 g/dl (12.0-16.0); LYMPHOCYTES # (AUTO) 0.6 X10'3 (1.1-4.8); LYMPHOCYTES % (AUTO) 10.3 % (21-51); MEAN CORPUSCULAR HEMOGLOBIN 34.9 PG (27.0-31.0); MEAN CORPUSCULAR VOLUME 102.8 FL (78-98); MEAN PLATELET VOLUME 8.9 FL (7.4-10.4); MONOCYTES # (AUTO) 0.7 X10'3 (0-0.9); MONOCYTES % (AUTO) 11.6 % (2-12); NEUTROPHILS # (AUTO) 4.6 X10'3 (1.8-7.7); NEUTROPHILS % (AUTO) 77.7 % (42-75); PLATELET COUNT 173 X10'3 (140-440); RED BLOOD COUNT 3.53 X10'6 (4.20-5.60); RED CELL DISTRIBUTION WIDTH 12.9 % (11.5-14.5); WHITE BLOOD COUNT 5.9 X10'3 (4.5-11.0)
[2024-01-01 06:08] LABS: INR 1.7 INR; PROTHROMBIN TIME 16.7 SECONDS (9.0-12.0)
[2024-01-01 06:12] LABS: ALBUMIN 3.8 G/DL (3.4-5.0); ANION GAP 9 (8-16); BLOOD UREA NITROGEN 11 MG/DL (7-18); BUN/CREATININE RATIO 12.6 (10.0-20.0); CALCIUM 8.8 MG/DL (8.5-10.1); CHLORIDE 98 MMOL/L (99-107); CREATININE 0.87 MG/DL (0.40-0.90); GLUCOSE 118 MG/DL (70-104); MAGNESIUM 1.7 MG/DL (1.5-2.4); POTASSIUM 3.1 MMOL/L (3.5-5.1); SODIUM 136 MMOL/L (135-145); TOTAL CARBON DIOXIDE 29.3 MMOL/L (24-32); eCRCL 48 ML/MIN; eGFR 62 ML/MIN
[2024-01-01] MEDS ORDERED: non-formulary drug (Diltiazem HCl (Diltiazem ER) 1 CAP) PO SCH (08:00)
[2024-01-01] MEDS: atorvastatin 20mg tablet PO SCH (08:15)
[2024-01-01] MEDS: potassium Cl 20 mEq SR tablet PO PRN (08:17)
[2024-01-01] MEDS: acetaminophen 325mg tablet PO PRN (08:20)
[2024-01-01] MEDS: guaiFENesin/DM 10ml UD oral syrup PO PRN (14:25)
[2024-01-01] MEDS ORDERED: warfarin 3mg tablet PO SCH (17:00)
[2024-01-01] MEDS ORDERED: magnesium sulf-water 2g/50mL 50 ML IV PRN (20:25)
[2024-01-01] MEDS ORDERED: magnesium sulf-water 4G/100mL 100 ML IV PRN (20:25)
[2024-01-01] MEDS: amitriptyline 10mg tablet PO SCH (21:00)
[2024-01-01] MEDS: chloestyramine/aspartame 4gm packet PO SCH (21:04)
[2024-01-01] MEDS: warfarin 3mg tablet PO ONE (21:04)
[2024-01-02] VITALS (15 sets, daily range): BP systolic 109–137; BP diastolic 61–80; PULSE 76–129; RESP 13–21; TEMP 97.4–99.5; O2SAT 94–99
[2024-01-02 06:01] LABS: BASOPHILS % (AUTO) 0.4 % (0-1); HEMATOCRIT 38.3 % (35.0-45.0); HEMOGLOBIN 12.8 g/dl (12.0-16.0); LYMPHOCYTES # (AUTO) 0.8 X10'3 (1.1-4.8); LYMPHOCYTES % (AUTO) 18.7 % (21-51); MEAN CORPUSCULAR HEMOGLOBIN 34.4 PG (27.0-31.0); MEAN CORPUSCULAR HGB CONC 33.5 g/dL (33.0-36.5); MEAN CORPUSCULAR VOLUME 102.6 FL (78-98); MEAN PLATELET VOLUME 8.6 FL (7.4-10.4); MONOCYTES # (AUTO) 0.8 X10'3 (0-0.9); MONOCYTES % (AUTO) 17.6 % (2-12); NEUTROPHILS # (AUTO) 2.8 X10'3 (1.8-7.7); NEUTROPHILS % (AUTO) 62.3 % (42-75); PLATELET COUNT 164 X10'3 (140-440); RED BLOOD COUNT 3.73 X10'6 (4.20-5.60); RED CELL DISTRIBUTION WIDTH 12.6 % (11.5-14.5); WHITE BLOOD COUNT 4.5 X10'3 (4.5-11.0)
[2024-01-02 06:03] LABS: INR 1.8 INR; PROTHROMBIN TIME 17.8 SECONDS (9.0-12.0)
[2024-01-02 06:04] LABS: ALBUMIN 3.4 G/DL (3.4-5.0); ANION GAP 5 (8-16); BLOOD UREA NITROGEN 14 MG/DL (7-18); BUN/CREATININE RATIO 19.2 (10.0-20.0); CALCIUM 8.9 MG/DL (8.5-10.1); CHLORIDE 104 MMOL/L (99-107); CREATININE 0.73 MG/DL (0.40-0.90); GLUCOSE 107 MG/DL (70-104); POTASSIUM 3.9 MMOL/L (3.5-5.1); SODIUM 138 MMOL/L (135-145); TOTAL CARBON DIOXIDE 29.1 MMOL/L (24-32); eCRCL 58 ML/MIN; eGFR 76 ML/MIN
[2024-01-02 07:13] LABS: TOTAL CELLS COUNTED 100
[2024-01-02 07:14] LABS: PLATELET ESTIMATE NORMAL
[2024-01-02] MEDS: albuterol 2.5 MG/3 ML nebule ONE (07:57)
[2024-01-02] MEDS: albuterol 2.5 MG/3 ML nebule NEB PRN (13:50)
[2024-01-02] MEDS: diltiazem 5mg/ml 5ml inj. IV ONE (19:28)
[2024-01-02] MEDS: warfarin 3mg tablet PO ONE (20:42)
[2024-01-03] VITALS (9 sets, daily range): BP systolic 117–122; BP diastolic 62–71; PULSE 96–148; RESP 16–22; TEMP 97.5–97.8; O2SAT 92–97
[2024-01-03] MEDS: diltiazem 5mg/ml 5ml inj. IV ONE (00:40)
[2024-01-03 06:24] LABS: PROTHROMBIN TIME 20.3 SECONDS (9.0-12.0)
[2024-01-03 06:35] LABS: BASOPHILS % (AUTO) 0.3 % (0-1); EOSINOPHILS # (AUTO) 0.1 X10'3 (0-0.9); EOSINOPHILS % (AUTO) 1.3 % (0-6); HEMATOCRIT 41.1 % (35.0-45.0); HEMOGLOBIN 13.8 g/dl (12.0-16.0); LYMPHOCYTES # (AUTO) 0.9 X10'3 (1.1-4.8); LYMPHOCYTES % (AUTO) 14.8 % (21-51); MEAN CORPUSCULAR HEMOGLOBIN 34.5 PG (27.0-31.0); MEAN CORPUSCULAR HGB CONC 33.7 g/dL (33.0-36.5); MEAN CORPUSCULAR VOLUME 102.4 FL (78-98); MEAN PLATELET VOLUME 8.3 FL (7.4-10.4); MONOCYTES # (AUTO) 0.9 X10'3 (0-0.9); MONOCYTES % (AUTO) 14.4 % (2-12); NEUTROPHILS # (AUTO) 4.4 X10'3 (1.8-7.7); NEUTROPHILS % (AUTO) 69.2 % (42-75); PLATELET COUNT 181 X10'3 (140-440); RED BLOOD COUNT 4.02 X10'6 (4.20-5.60); RED CELL DISTRIBUTION WIDTH 12.9 % (11.5-14.5); WHITE BLOOD COUNT 6.3 X10'3 (4.5-11.0)
[2024-01-03 06:37] LABS: ALBUMIN 3.5 G/DL (3.4-5.0); ANION GAP 9 (8-16); BLOOD UREA NITROGEN 16 MG/DL (7-18); BUN/CREATININE RATIO 23.2 (10.0-20.0); CALCIUM 9.3 MG/DL (8.5-10.1); CHLORIDE 103 MMOL/L (99-107); CREATININE 0.69 MG/DL (0.40-0.90); GLUCOSE 107 MG/DL (70-104); MAGNESIUM 2.2 MG/DL (1.5-2.4); POTASSIUM 3.5 MMOL/L (3.5-5.1); SODIUM 140 MMOL/L (135-145); TOTAL CARBON DIOXIDE 28.1 MMOL/L (24-32); eCRCL 61 ML/MIN; eGFR 81 ML/MIN
[2024-01-03] MEDS: azithromycin/NS 500mg/250ml 250 ML IV SCH (16:14)
[2024-01-03] MEDS: CefTRIAXone/D5W-Rocephin 1gm 50 ML IV SCH (16:15)
[2024-01-03] MEDS: ipratropium/albuterol 3ml nebule NEB SCH (19:51)
[2024-01-03] MEDS: warfarin 3mg tablet PO ONE (21:28)
[2024-01-03] MEDS: methylPREDNISolone sod succ 125mg/2ml vial IV SCH (21:38)
[2024-01-04] VITALS (16 sets, daily range): BP systolic 113–136; BP diastolic 62–85; PULSE 80–147; RESP 14–28; TEMP 96.8–98.2; O2SAT 93–98
[2024-01-04 05:47] LABS: ALBUMIN 3.4 G/DL (3.4-5.0); ANION GAP 9 (8-16); BLOOD UREA NITROGEN 15 MG/DL (7-18); BUN/CREATININE RATIO 20.3 (10.0-20.0); CALCIUM 8.9 MG/DL (8.5-10.1); CHLORIDE 102 MMOL/L (99-107); CREATININE 0.74 MG/DL (0.40-0.90); GLUCOSE 186 MG/DL (70-104); INR 2.3 INR; MAGNESIUM 1.9 MG/DL (1.5-2.4); POTASSIUM 3.9 MMOL/L (3.5-5.1); PROTHROMBIN TIME 22.7 SECONDS (9.0-12.0); SODIUM 141 MMOL/L (135-145); TOTAL CARBON DIOXIDE 29.6 MMOL/L (24-32); eCRCL 57 ML/MIN; eGFR 75 ML/MIN
[2024-01-04 05:55] LABS: BASOPHILS % (AUTO) 0.1 % (0-1); EOSINOPHILS % (AUTO) 0.1 % (0-6); HEMATOCRIT 38.2 % (35.0-45.0); HEMOGLOBIN 12.8 g/dl (12.0-16.0); LYMPHOCYTES # (AUTO) 0.5 X10'3 (1.1-4.8); LYMPHOCYTES % (AUTO) 12.2 % (21-51); MEAN CORPUSCULAR HEMOGLOBIN 34.2 PG (27.0-31.0); MEAN CORPUSCULAR HGB CONC 33.4 g/dL (33.0-36.5); MEAN CORPUSCULAR VOLUME 102.3 FL (78-98); MEAN PLATELET VOLUME 8.6 FL (7.4-10.4); MONOCYTES # (AUTO) 0.1 X10'3 (0-0.9); NEUTROPHILS # (AUTO) 3.3 X10'3 (1.8-7.7); NEUTROPHILS % (AUTO) 84.6 % (42-75); PLATELET COUNT 208 X10'3 (140-440); RED BLOOD COUNT 3.73 X10'6 (4.20-5.60); RED CELL DISTRIBUTION WIDTH 12.8 % (11.5-14.5); WHITE BLOOD COUNT 3.9 X10'3 (4.5-11.0)
[2024-01-04] MEDS: ipratropium 0.5 MG/2.5ML nebule IH SCH (14:46)
[2024-01-04] MEDS: levalbuterol 0.63mg/3ml nebule IH SCH (15:00)
[2024-01-04 16:02] LABS: BILIRUBIN,URINE NEGATIVE (Neg); COLOR,URINE YELLOW (Yellow); GLUCOSE, URINE NEGATIVE (Neg); KETONES,URINE NEGATIVE (Neg); LEUKOCYTE ESTERASE ,URINE NEGATIVE (Neg); NITRITES, URINE NEGATIVE (Neg); OCCULT BLOOD,URINE NEGATIVE (Neg); PH,URINE 5.5 (4.8-8.0); PROTEIN,URINE NEGATIVE (Neg); UROBILINOGEN,URINE 0.2 E.U/dL (0.2-1.0)
[2024-01-04 16:06] LABS: UA COLLECTION TYPE NON-SPECIFIED
[2024-01-04 16:08] LABS: CLARITY,URINE SLIGHTLY CLOUDY (Clear)
[2024-01-04 16:09] LABS: BACTERIA,URINE NONE SEEN /HPF (Neg); SQUAMOUS EPITHELIAL CELL,UR FEW /LPF (FEW); WBC,URINE 0-4 /HPF (0-4)
[2024-01-04 16:10] LABS: MUCUS STRANDS FEW /LPF (Neg); URIC ACID CRYSTALS 4+ /HPF (NEGATIVE)
[2024-01-04] MEDS: diltiazem 5mg/ml 5ml inj. IV ONE ×2 (16:31→21:27)
[2024-01-04] MEDS: warfarin 3mg tablet PO ONE (21:29)
[2024-01-05] VITALS (11 sets, daily range): BP systolic 116–134; BP diastolic 64–91; PULSE 91–125; RESP 12–20; TEMP 97.6–98.2; O2SAT 93–97
[2024-01-05] MEDS: digoxin 250mcg/ml 2ml ampule IV ONE (00:14)
[2024-01-05] MEDS: digoxin 250mcg/ml 2ml ampule IV SCH (04:24)
[2024-01-05 06:03] LABS: BASOPHILS % (AUTO) 0 % (0-1); EOSINOPHILS % (AUTO) 0 % (0-6); HEMATOCRIT 37.3 % (35.0-45.0); HEMOGLOBIN 12.2 g/dl (12.0-16.0); LYMPHOCYTES # (AUTO) 0.6 X10'3 (1.1-4.8); LYMPHOCYTES % (AUTO) 4.7 % (21-51); MEAN CORPUSCULAR HEMOGLOBIN 33.5 PG (27.0-31.0); MEAN CORPUSCULAR HGB CONC 32.8 g/dL (33.0-36.5); MEAN CORPUSCULAR VOLUME 102.2 FL (78-98); MEAN PLATELET VOLUME 8.3 FL (7.4-10.4); MONOCYTES # (AUTO) 0.5 X10'3 (0-0.9); MONOCYTES % (AUTO) 3.5 % (2-12); NEUTROPHILS # (AUTO) 12.7 X10'3 (1.8-7.7); NEUTROPHILS % (AUTO) 91.8 % (42-75); PLATELET COUNT 219 X10'3 (140-440); RED BLOOD COUNT 3.65 X10'6 (4.20-5.60); RED CELL DISTRIBUTION WIDTH 12.7 % (11.5-14.5); WHITE BLOOD COUNT 13.9 X10'3 (4.5-11.0)
[2024-01-05 06:07] LABS: ALBUMIN 3.3 G/DL (3.4-5.0); ANION GAP 9 (8-16); BLOOD UREA NITROGEN 19 MG/DL (7-18); BUN/CREATININE RATIO 23.5 (10.0-20.0); CHLORIDE 102 MMOL/L (99-107); CREATININE 0.81 MG/DL (0.40-0.90); GLUCOSE 164 MG/DL (70-104); POTASSIUM 4.4 MMOL/L (3.5-5.1); PROTHROMBIN TIME 30.2 SECONDS (9.0-12.0); SODIUM 140 MMOL/L (135-145); TOTAL CARBON DIOXIDE 29.3 MMOL/L (24-32); eCRCL 52 ML/MIN; eGFR 68 ML/MIN
[2024-01-05] MEDS ORDERED: amiodarone 50MG/ML inj IV ONE (09:50)
[2024-01-05] MEDS: amiodarone 150mg/dext, iso-os 100 ML IV ONE (10:55)
[2024-01-05] MEDS: warfarin 1mg tablet PO ONE (20:18)
[2024-01-06 02:00] VITALS: BP 106/61; PULSE 94; RESP 16; TEMP 98.1; O2SAT 96
[2024-01-06 06:00] VITALS: BP 135/82; PULSE 81; RESP 14; TEMP 97.4; O2SAT 94
[2024-01-06 06:20] LABS: INR 3.7 INR; PROTHROMBIN TIME 36.1 SECONDS (9.0-12.0)
[2024-01-06 08:00] VITALS: RESP 14; O2SAT 94
[2024-01-06 08:11] VITALS: PULSE 86; RESP 18; O2SAT 94
[2024-01-06 09:26] VITALS: BP_SYST 134
[2024-01-06 11:25] VITALS: PULSE 105; RESP 19; O2SAT 99
== END 2024-01-06 11:40 | disposition home or self-care (01) | DRG 193 ==
LOC: ER 07:26 → ED HOLD 13:00 → EDBEDREQ 14:33 → PCU 3S 15:33
PROVIDERS: ADMIT Internal Medicine; ATTEND Internal Medicine
DX: J18.9 Pneumonia, unspecified organism (principal); I50.33 Acute on chronic diastolic (congestive) heart failure; I48.19 Other persistent atrial fibrillation; J44.1 Chronic obstructive pulmonary disease with (acute) exacerbation; J44.0 Chronic obstructive pulmonary disease with (acute) lower respiratory infection; I11.0 Hypertensive heart disease with heart failure; E87.6 Hypokalemia; E78.5 Hyperlipidemia, unspecified; I27.20 Pulmonary hypertension, unspecified; Z86.73 Personal history of transient ischemic attack (TIA), and cerebral infarction without residual deficits; Z79.01 Long term (current) use of anticoagulants; Z79.899 Other long term (current) drug therapy; Z80.3 Family history of malignant neoplasm of breast
CPT/HCPCS: 36415; 36600; 71045; 71250; 74176; 80048; 81001; 82803; 83605; 83735; 83880; 84484; 85007; 85018; 85025; 85610; 85730; 87040; 87081; 93005; 93306; 94640; 94760; 96365; 97116; 97161; 97530; 99285; A4333; A6213; G0378; J0282; J0360; J0456; J0696; J1160; J1940; J2919; J3490; J7030; J7040; J7614